=== PATIENT | male | born 1970 | race Caucasian/White ===

== ENCOUNTER 2019-03-18 07:59 | Observation (INO) | payer BC ==
[2019-03-17 14:10] LABS: BASOPHILS # (AUTO) 0.1 (0.0-0.1); BASOPHILS % 1.1 % (0.0-1.0); EOSINOPHILS # (AUTO) 0.2 (0.0-0.4); EOSINOPHILS % 2.2 % (0.0-6.0); HEMATOCRIT 45.6 % (38.2-49.6); HEMOGLOBIN 15.3 g/dL (14.0-18.0); LYMPHOCYTES % 39.1 % (18.0-39.1); MEAN CORPUSCULAR HEMOGLOBIN 30.2 pg (28-32); MEAN CORPUSCULAR HGB CONC 33.6 g/dL (31-35); MEAN CORPUSCULAR VOLUME 89.9 fL (81-99); MONOCYTES # (AUTO) 0.9 (0.2-0.8); NEUTROPHILS # (AUTO) 3.4 (2.1-6.9); NEUTROPHILS % 45.3 % (38.7-80.0); PLATELET COUNT 258 x10e3/uL (140-360); RED BLOOD COUNT 5.07 x10e6/uL (4.3-5.7); RED CELL DISTRIBUTION WIDTH 13.7 % (11.7-14.4)
--- NOTE | 2019-03-17 14:29 | Diagnostic Imaging Report ---
EXAMINATION: CHEST 2 VIEWS INDICATION: Pre-admit. COMPARISON: None FINDINGS: TUBES and LINES: None. LUNGS: Lungs are not well inflated. There is bibasilar atelectasis. There is no evidence of pneumonia or pulmonary edema. PLEURA: No pleural effusion or pneumothorax. HEART AND MEDIASTINUM: The cardiomediastinal silhouette is unremarkable. BONES AND SOFT TISSUES: No acute osseous abnormality. UPPER ABDOMEN: No free air under the diaphragm. IMPRESSION: No acute radiographic abnormality. Signed by: Dr. Bola Blanton MD on 03/17/2019 2:26 PM
[2019-03-17 14:31] LABS: INR 0.8; PROTHROMBIN TIME 11.5 seconds (11.9-14.5)
[2019-03-17 14:32] LABS: PARTIAL THROMBOPLASTIN TIME 29.5 seconds (23.8-35.5)
[2019-03-17 14:35] LABS: BLOOD UREA NITROGEN 12 mg/dL (7-26); BUN/CREATININE RATIO 11 (6-25); CALCIUM 9.7 mg/dL (8.4-10.2); CARBON DIOXIDE 27 mmol/L (22-29); CHLORIDE 103 mmol/L (98-107); CREATININE, SERUM 1.09 mg/dL (0.72-1.25); EST GLOMERULAR FILTRATION RATE > 60 ML/MIN (60-); GLUCOSE 73 mg/dL (74-118); SODIUM 138 mmol/L (136-145)
[~2019-03-18] VITALS: Ht 182.9 cm; Wt 112.5 kg
[~2019-03-18 07:59] MED LIST: ACETAMINOPHEN 1000 MG/100 ML 100 ML IV ONE; IBUPROFEN 250 ML IV ONE; LIDOCAINE HCL (LTA) 4 ML SOLN ONE
--- OUTSIDE RECORDS SUMMARY | 2019-03-18 08:00 | XMS REPORT ---
[facility] Address Unknown Phone Unavailable Care Team Providers Care Development Eng Name Role Phone DEVANTE ABRAHAM Unavailable Unavailable Problems This patient has no known problems. Allergies, Adverse Reactions, Alerts This patient has no known allergies or adverse reactions. Medications This patient has no known medications. Results Test Description Test Time Test Comments Text Results Atomic Results Result Comments CHEST 2 VIEWS 2019-03-17 14:24:00 [place] [address] Patient Name: DIANA MITCHELL MR #: [id number] : 1970 Age/Sex: 48/M Req #: [id number] Adm Physician: Ordered by: DEVANTE ABRAHAM MD Report #: [id number] Location: OR Room/Bed: Procedure: [id number] DX/CHEST 2 VIEWS Exam Date: 03/17/19 Exam Time: 1400 REPORT STATUS: Signed EXAMINATION: CHEST 2 VIEWS INDICATION: Pre-admit. COMPARISON: None FINDINGS: TUBES and LINES: None. LUNGS: Lungs are not well inflated. There is bibasilar atelectasis. There is no evidence of pneumonia or pulmonary edema. PLEURA: No pleural effusion or pneumothorax. HEART AND MEDIASTINUM: The cardiomediastinal silhouette is unremarkable. BONES AND SOFT TISSUES: No acute osseous abnormality. UPPER ABDOMEN: No free air under the diaphragm. IMPRESSION: No acute radiographic abnormality. Signed by: Dr. Sweetie Ellis MD on 03/17/2019 2:26 PM Dictated By: SWEETIE ELLIS MD [id number] Transcribed By: SURJIT on 03/17/19 142 COPY TO: DEVANTE ABRAHAM MD
[2019-03-18] MEDS ORDERED: CEFAZOLIN SOD 2 GM/D5W 50ML 50 ML IV ONE (08:17)
[2019-03-18] MEDS ORDERED: BACITRACIN 50,000 UNIT VIAL ONE (08:24)
[2019-03-18] MEDS ORDERED: THROMBIN FOR SOLN 5,000 UNIT VIAL ONE (08:24)
[2019-03-18] MEDS ORDERED: GELATIN SPONGE 12-7MM ONE (08:24)
[2019-03-18] MEDS ORDERED: BUPIVACAINE 0.5%/EPI 30 ML SDV INJ ONE (08:24)
[2019-03-18] MEDS: LACTATED RINGER'S 1,000 ML IV SCH (11:53)
[2019-03-18] MEDS ORDERED: ZOLPIDEM TARTRATE 5 MG TAB PO PRN (12:00)
[2019-03-18] MEDS ORDERED: MAGNESIUM/ALUMINUM/SIMETHICONE 30 ML UDC PO PRN (12:00)
[2019-03-18] MEDS ORDERED: CARISOPRODOL 350 MG TAB PO PRN (12:00)
[2019-03-18] MEDS ORDERED: OXYCODONE/ACETAMINOPHEN 5-325 1 EACH TABLET PO PRN (12:00)
[2019-03-18] MEDS ORDERED: CEPACOL SORE THROAT LOZENGES PO PRN (12:00)
[2019-03-18] MEDS ORDERED: MORPHINE SULFATE 5 MG/ML VIAL IM PRN (12:00)
[2019-03-18] MEDS ORDERED: ONDANSETRON HCL INJ 2MG/ML 2ML 2 MG/ML VIAL IV PRN (12:00)
[2019-03-18] MEDS ORDERED: HYDROMORPHONE 2MG/ML 2 MG/ML ML IV PRN (12:00)
[2019-03-18] MEDS ORDERED: PROMETHAZINE HCL (IM) 25 MG/ML VIAL IM PRN (12:00)
[2019-03-18] MEDS ORDERED: ACETAMINOPHEN 325 MG TAB PO PRN (12:00)
[2019-03-18] MEDS ORDERED: FENTANYL CITRATE/PF 100MCG/2 ML INJ ONE ×2 (12:28→19:22)
[2019-03-18] MEDS ORDERED: DEXAMETHASONE SOD PHOS INJ 4 MG/ML VIAL ONE (13:46)
[2019-03-18] MEDS ORDERED: ROCURONIUM BROMIDE 10 MG/ML 5ML VIAL ONE (13:46)
[2019-03-18] MEDS ORDERED: SEVOFLURANE INHAL SOLN 250 ML PEN BTL ONE (13:46)
[2019-03-18] MEDS ORDERED: LIDOCAINE HCL 2% JELLY 5 ML TUBE ONE (13:46)
[2019-03-18] MEDS ORDERED: LIDOCAINE HCL 2% LOCAL INJ 5 ML SDV VIAL INJ ONE (13:46)
[2019-03-18] MEDS ORDERED: GLYCOPYRROLATE INJ 1MG/ 5 ML SYR ONE (13:46)
[2019-03-18] MEDS ORDERED: PROPOFOL IV EMULSION 10 MG/ML 20 ML VIAL ONE (13:46)
[2019-03-18] MEDS ORDERED: CEFAZOLIN SOD 1 GM/NS 50ML 50 ML IV SCH (14:00)
--- NOTE | 2019-03-18 14:30 | NUR ---
pt arrived to unit resp even and unlabored at this time no distress noted, no sob indicated, pt was able to ambulate from stretcher, pt has cervical collar intact, pt has very little pain at this time as stated by pt. pt oriented to room and call light, bed in lowest position, bed rails upx2, call light in reach, will cont to monitor.
--- NOTE | 2019-03-18 16:08 | NUR ---
SOCIAL WORK INITIAL ASSESSMENT Agricultural Agent to bedside to discuss plan of care with patient/family. CM/SW role and care transitions discussed. Anticipated discharge plan discussed along with duration of care. CM/SW discussed patients right to make decisions in care. CM/SW work hours given. 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 Name and number was also written on the patients whiteboard. Patient verbalized understanding of discussion. CM will follow-up with ongoing discharge and transition of care needs.
[2019-03-18] MEDS: CEFAZOLIN SOD 1 GM/NS 50ML 50 ML IV SCH (16:57)
[2019-03-18 17:31] VITALS: BP 116/59
--- NOTE | 2019-03-18 17:33 | Operative Report ---
DATE OF PROCEDURE: 03/18/2019 SURGEON: Pablo Saldana MD PREOPERATIVE DIAGNOSIS: C5-6 and C6-7 spondylosis and disk herniations with radiculopathy, M50.120. POSTOPERATIVE DIAGNOSIS: C5-6 and C6-7 spondylosis and disk herniations with radiculopathy, M50.120. PROCEDURES: 1. C5-6 anterior cervical diskectomy and microsurgical osteophyte resection and allograft fusion, 37302. 2. C6-7 anterior cervical diskectomy and microsurgical osteophyte resection and allograft fusion, 81129. 3. Preparation of tricortical iliac crest allograft, 88843. 4. C5-6 and C6-7 anterior cervical plating with Synthes CSLP plate, 05793. ANESTHESIA: General. INDICATIONS: The patient is a 48-year-old man, who presents with multilevel cervical spondylosis and a severe left-sided C7 radiculopathy with triceps weakness. He was taken to the operating room for two-level anterior cervical decompression and fusion at C5-6 and C6-7. PROCEDURE IN DETAIL: After induction of general anesthesia, the patient was placed on the operating table in supine position and the right side of the neck was prepped and draped in sterile fashion. The fluoroscopic C-arm was positioned in cross-table lateral orientation. A transverse incision was created on the right side of neck superimposed on the C6 vertebral body as determined by fluoroscopy. The platysma was divided in line with the incision. A subplatysmal dissection was carried out and avascular plane of dissection was developed medially to sternocleidomastoid muscle and was followed medial to the carotid sheath to the anterior border of the cervical spine. The deep cervical fascia was opened, the esophagus was retracted to the left. The attachments of longus colli muscles to the anterolateral aspects of vertebral bodies of C5, C6, and C7 were divided. The anterior longitudinal ligament was resected. [place] posts were inserted into C5 and C7. The [place] distractor was used to distract the disk space. The anterior anulus of the disk was incised with a #11 blade and the contents of the disks were thoroughly evacuated with angled curettes and pituitary rongeurs. The posterior osteophytes at both levels were resected with a 2 mm cutting bur on a high-speed drill until they were completely removed. The posterior annulus of the disk, herniated disk material, and the posterior longitudinal ligament were resected layer by layer at both levels until the dura was fully exposed and decompressed. The medial aspects of the uncinate processes were resected bilaterally with particular attention given to the hypertrophic uncinate processes on the left side. The C6 and C7 nerve roots were exposed bilaterally along their origin, particularly on the left side. Herniated disk material was retrieved and removed from the left C7 neural foramen. After excellent decompression had been achieved, the endplates were prepared for fusion. Two pieces of tricortical iliac crest allograft were cut to size and shapes of the disk spaces and were inserted into disk spaces under distraction and fluoroscopic guidance. The distraction was released and distraction posts were removed. A Synthes CSLP variable type anterior cervical plate measuring 37 mm was selected and was affixed to the vertebral bodies of C5, C6 and C7 with three pairs of screws. The screws at C5 were 16 x 4.35 mm. The screws at C6 and C7 were 14 x 4.35 mm screws. All screw holes were drilled and tapped under lateral fluoroscopic guidance. All screws were locked with the appropriate locking screws. An excellent construct was obtained. The wound was copiously irrigated with bacitracin solution. Meticulous hemostasis was secured. Retraction was removed. The platysma was closed with 3-0 Vicryl sutures. The skin was closed with 4-0 Monocryl sutures in subcuticular fashion. Steri-Strips and dressing were applied. The patient was awakened, extubated, and taken to postanesthesia care unit in stable condition. No intraoperative complications were encountered. Estimated blood loss was 30 mL. Pablo Saldana MD PP/MODL /[id number]
--- NOTE | 2019-03-18 18:58 | NUR ---
report given to oncoming nurse, for cont. care.
[2019-03-18] MEDS ORDERED: MIDAZOLAM HCL 2 MG/2 ML VIAL ONE (19:22)
[2019-03-18 20:00] VITALS: BP 137/70
[2019-03-19] VITALS: BP 138/72
[2019-03-19] MEDS: LACTATED RINGER'S 1,000 ML IV SCH ×2 (00:22→04:33)
[2019-03-19] MEDS: CEFAZOLIN SOD 1 GM/NS 50ML 50 ML IV SCH ×2 (00:22→08:41)
[2019-03-19 04:00] VITALS: BP 122/77
[2019-03-19 04:07] VITALS: BP 122/77
--- NOTE | 2019-03-19 06:47 | Diagnostic Imaging Report ---
Cervical Spine, 2 views HISTORY: Postoperative. COMPARISON: None. FINDINGS: On the lateral view, the cervical spine is visualized from the skull base to C7 Reversal of cervical lordosis is either related to muscle spasm or positioning. Status post anterior fusion of C5 on C6 and C6-C7 with metallic plate and screws. Only half of the C5 screws length is within the confines of the vertebral body. Interbody grafts are noted. Mild prevertebral soft tissue swelling. IMPRESSION: Status post anterior fusion of C5 on C6 and C6-C7 with metallic plate and screws. Only half of the C5 screws length is within the confines of the vertebral body. Signed by: Dr. Jaya Bailey M.D. on 03/19/2019 6:44 AM
[2019-03-19 07:53] VITALS: BP 133/81
[2019-03-19 09:35] VITALS: BP 133/81
[2019-03-19] MEDS ORDERED: NORCO 7.5-3251 EACH PO (09:45)
--- NOTE | 2019-03-19 10:21 | NUR ---
patient discharged home, prescription and discharge instruction given, patient verbalized understanding, dressing changed and no redness, swelling or drainage from incision site anterior neck. IV canula removed no ss of infiltration, at bed side giving him ride, not in any distress, [facility]
== END 2019-03-19 10:15 | disposition home or self-care (01) ==
LOC: OR 07:59 → PACU V 11:54 → IMCU 14:25
PROVIDERS: ADMIT Neurological Surgery; ATTEND Neurological Surgery
DX: M50.122 Cervical disc disorder at C5-C6 level with radiculopathy (principal); M48.02 Spinal stenosis, cervical region; Z01.810 Encounter for preprocedural cardiovascular examination; Z01.812 Encounter for preprocedural laboratory examination; Z01.811 Encounter for preprocedural respiratory examination
CPT/HCPCS: 20931; 22551; 22552; 22845; 36415; 71046; 72040; 80048; 85025; 85610; 85730; 86850; 86900; 88304; 93005; C1713 ×5; C1763; G0378 ×2; J0131; J0690 ×2; J1100; J2001 ×2; J2250; J2704; J3490; J7121 ×2; 77003; J2405

== ENCOUNTER → 2019-04-14 | Outpatient (CLI) | payer BC ==
[~2019-04-14] MED LIST changes: -ACETAMINOPHEN 1000 MG/100 ML 100 ML IV ONE; -IBUPROFEN 250 ML IV ONE; -LIDOCAINE HCL (LTA) 4 ML SOLN ONE; +NORCO 7.5-3251 EACH PO
--- NOTE | 2019-04-14 12:28 | Diagnostic Imaging Report ---
Exam: Cervical spine with flexion and extension radiographs History: Status post fusion Comparison: 03/19/2019 Findings: The cervical spine is visualized from skull base to the top of T1 on the lateral radiograph. Postsurgical changes related to anterior fusion of C5, C6, and C7 with an intact plate and screw construct. Unchanged position of surgical hardware. No inducible malalignment in flexion or extension radiographs. Intervertebral disc spaces are well-maintained. Atlantoaxial interval is within normal limits. Prevertebral soft tissues are of normal thickness. Impression: Stable appearance of surgical hardware related to anterior fusion of C5, C6, and C7. No inducible malalignment on flexion or extension radiographs. Signed by: Dr. Bg Faye M.D. on 04/14/2019 12:25 PM
== END ==
LOC: RAD 11:21
PROVIDERS: ATTEND Neurological Surgery
DX: M50.20 Other cervical disc displacement, unspecified cervical region (principal); Z98.1 Arthrodesis status
CPT/HCPCS: 72050